=== PATIENT | female | born 1975 | race African-American/Black ===

== ENCOUNTER 2017-10-29 22:19 | Emergency (ER) | payer BC ==
[2017-10-30] MEDS ORDERED: Ketorolac Tromethamine 60 MG/2 ML VIAL ONE (00:25)
--- NOTE | 2017-10-30 07:40 | RAD ---
RIGHT KNEE 4 VIEWS: HISTORY: Right knee pain. FINDINGS: No osseous abnormality. No evidence of degenerative change or fracture. There is evidence of small joint effusion seen in the suprapatellar region. IMPRESSION: Evidence of small joint effusion. No osseous abnormality. POS: [facility]
== END 2017-10-30 00:57 | disposition home or self-care (01) ==
LOC: ERS 22:19
DX: M25.561 Pain in right knee (principal); I10 Essential (primary) hypertension; J45.909 Unspecified asthma, uncomplicated
CPT/HCPCS: 96372; J1885

== ENCOUNTER 2017-11-25 10:22 | Emergency (ER) | payer BC ==
[2017-11-25 11:11] LABS: #Eosinphils 0.4 thou/uL (0.0-0.7); #Lymphocytes 1.3 thou/uL (1.20-3.40); #Monocytes 0.5 thou/uL (0.11-0.59); #Neutrophils 5.1 thou/uL (1.40-6.50); %Basophils 0.2 % (0.0-1.0); %Eosinophils 6.1 % (0.0-10.0); %Lymphocytes 17.5 % (21.0-51.0); %Monocytes 6.4 % (0.0-10.0); %Neutrophils 69.8 % (42.0-75.0); Hemoglobin 14.1 g/dL (12.0-16.0); Mean Corpuscular HGB CONC 33.7 g/dL (32.0-36.0); Mean Corpuscular Hemoglobin 29.4 pg (27.0-31.0); Mean Corpuscular Volume 87.3 fl (81.0-99.0); Mean Platelet Volume 7.4 fL (7.4-10.4); Platelet Count 195 thou/uL (130-400); RBC Distribution Width 12.8 % (11.5-14.5); Red Blood Cell (RBC) Count 4.79 mill/uL (4.20-5.40); White Blood Cell (WBC) Count 7.3 thou/uL (4.8-10.8)
[2017-11-25] MEDS ORDERED: methylPREDNISolone Sod Succ/PF 125 MG/2 ML VIAL ONE (11:11)
[2017-11-25] MEDS ORDERED: diphenhydrAMINE 50 MG/ML VIAL ONE (11:11)
[2017-11-25] MEDS ORDERED: Water For Inject, Bacteriostat 30 ML ONE (11:11)
[2017-11-25] MEDS ORDERED: Ondansetron ODT 4 MG TAB ONE (11:15)
[2017-11-25 11:27] LABS: Anion Gap 11 mmol/L (10-20); BUN (Urea Nitrogen) 8 mg/dL (7.0-18.7); Calc. Creatinine Clearance 0 mL/min (70-130); Calcium 9.4 mg/dL (7.8-10.44); Carbon Dioxide 29 mmol/L (22-29); Chloride 102 mmol/L (98-107); Estimated GFR-MDRD 81; Glucose 91 mg/dL (70-105); Sodium 138 mmol/L (136-145)
[2017-11-25] MEDS ORDERED: Acetaminophen 500 MG TAB ONE (12:11)
== END 2017-11-25 12:17 | disposition home or self-care (01) ==
LOC: ERS 10:22
DX: B34.9 Viral infection, unspecified (principal); R21 Rash and other nonspecific skin eruption; E78.5 Hyperlipidemia, unspecified; I10 Essential (primary) hypertension; J45.909 Unspecified asthma, uncomplicated
CPT/HCPCS: 80048; 85025; 96361; 96374; 96375; J1200; J2930; Q0162

== ENCOUNTER 2017-12-06 20:27 | Inpatient (IN) | payer BC ==
[2017-12-06] MEDS ORDERED: diphenhydrAMINE 50 MG/ML VIAL ONE (20:44)
[2017-12-06] MEDS ORDERED: Acetaminophen 500 MG TAB ONE ×2 (20:44→20:53)
[2017-12-06] MEDS ORDERED: Dexamethasone 4 mg/ml Vial ONE (20:44)
[2017-12-06 21:59] LABS: Fibrinogen 333 mg/dL (253-463)
[2017-12-06 22:00] LABS: INR-International Normal Ratio 1.2; PTT 33.7 SEC (22.9-36.1); Prothrombin Time 15.6 SEC (12.0-14.7)
[2017-12-06 22:08] LABS: ALT (SGPT) 52 U/L (8-55); AST (SGOT) 38 U/L (5-34); Albumin 3.5 g/dL (3.5-5.0); Alkaline Phosphatase 114 U/L (40-150); Anion Gap 16 mmol/L (10-20); BUN (Urea Nitrogen) 11 mg/dL (7.0-18.7); Bilirubin, Total 0.6 mg/dL (0.2-1.2); Calc. Creatinine Clearance 0 mL/min (70-130); Calcium 7.9 mg/dL (7.8-10.44); Carbon Dioxide 22 mmol/L (22-29); Chloride 99 mmol/L (98-107); D-Dimer Test 7.53 *mcg/mL (0.27-0.43); Estimated GFR-MDRD 67; Globulin 2.7 g/dL (2.4-3.5); Glucose 105 mg/dL (70-105); Potassium 3.6 mmol/L (3.5-5.1); Protein, Total 6.2 g/dL (6.0-8.3); Sodium 133 mmol/L (136-145)
[2017-12-06 22:16] LABS: FSP-Qualitative ABNORMAL (Normal)
[2017-12-06 22:20] LABS: FSP-Semiquantitative >=20 & <40 mcg/mL (Less than 5)
[2017-12-06 22:22] LABS: Platelet Count 222 thou/uL (130-400)
[2017-12-06 22:30] LABS: Bilirubin Small (Negative); Blood, Urine Negative (Negative); Clarity CLOUDY (Clear); Glucose, Urine (Dipstick) Negative (Negative); Leukocyte Moderate (Negative); Nitrite Negative (Negative); Protein, Urine (Dipstick) 30 mg/dL (Neg-Trace); Specific Gravity, Urine 1.027 (1.002-1.036); Urobilinogen 0.2 mg/dL (0.2-1.0)
[2017-12-06 22:32] LABS: Band 18 % (5-11); Eosinophils 2 % (0-10); Hemoglobin 13.3 g/dL (12.0-16.0); Lymphocytes 35 % (21-51); MDiff Complete? YES; Mean Corpuscular HGB CONC 34.9 g/dL (32.0-36.0); Mean Corpuscular Hemoglobin 30.1 pg (27.0-31.0); Mean Corpuscular Volume 86.1 fl (81.0-99.0); Mean Platelet Volume 7.3 fL (7.4-10.4); Monocytes 4 % (0-10); Neutrophil 41 % (42-75); PLT Morphology Comment Appears Adequate; Platelet Count 222 thou/uL (130-400); RBC Morphology Normal; Red Blood Cell (RBC) Count 4.43 mill/uL (4.20-5.40); White Blood Cell (WBC) Count 27.3 thou/uL (4.8-10.8)
[2017-12-06 22:33] LABS: Bacteria/HPF Rare-Few HPF (None Seen); Hyaline Casts/LPF 7-10 HYALINE CAST LPF (0-3 Hyaline); Pathc Cast-AUWi Flag 1.01 (0-2.49); Squamous Epithelial 0-3 HPF (0-3); WBC/HPF 21-50 HPF (0-3)
[2017-12-06 22:43] LABS: RBC/HPF 0-3 HPF (0-3)
[2017-12-06 23:23] VITALS: BMI 34.6
[2017-12-06] MEDS ORDERED: diphenhydrAMINE 50 MG/ML VIAL IVP PRN (23:23)
[2017-12-06] MEDS ORDERED: Sodium Chloride 0.9% 1,000 ML IV SCH (23:25)
[2017-12-06] MEDS ORDERED: Ondansetron ODT 4 MG TAB SL PRN (23:25)
[2017-12-06] MEDS ORDERED: Ondansetron HCl/PF 4 MG/2 ML Vial IVP PRN (23:25)
[2017-12-06] MEDS ORDERED: Acetaminophen 325 MG TAB PO PRN (23:25)
[2017-12-07] MEDS ORDERED: Acetaminophen 325 MG TAB PO PRN (00:45)
[2017-12-07] MEDS ORDERED: Sodium Chloride 0.9% 1,000 ML IV SCH (00:45)
[2017-12-07] MEDS ORDERED: Ondansetron ODT 4 MG TAB PO PRN (00:45)
[2017-12-07] MEDS ORDERED: methylPREDNISolone Sod Succ/PF 125 MG/2 ML VIAL IVP SCH (00:45)
[2017-12-07] MEDS ORDERED: Ondansetron HCl/PF 4 MG/2 ML Vial IVP PRN (00:45)
[2017-12-07 01:36] LABS: HIV (1/2) Antibody/Antigen Non-Reactive (NonReactive); HIV 1/2 INDEX 0.26 S/CO (<1.00)
[2017-12-07 01:52] LABS: Lactic Acid 1.5 mmol/L (0.5-2.2)
--- NOTE | 2017-12-07 02:14 | HP ---
DATE OF ADMISSION: 12/06/2017 TIME OF SERVICE: 2350 hours. PRIMARY CARE PHYSICIAN: Laura Cummings M.D. CHIEF COMPLAINT: Rash and fever. HISTORY OF PRESENT ILLNESS: Ms. Greenberg is a 42-year-old -Algerian female with history of obes ity, sleep apnea, asthma, hypertension who presents to the emergency department for complaints of dif fuse rash. The rash began about 3 days ago. She started to have upper torso and bilateral arms and says it extended inferiorly down to her upper thighs. The most recent areas in the upper anterior me dial thigh. She stated it was extremely itchy she has had that before and was told to use just Dove soap which fior has been using, but still had this occurrence. She denied having any fever but was febrile on pres entation. No chills or rigors. No drenching night sweats. No nausea and vomiting, but decreased ap petite has been present. She denies any constipation or GI bleeding. In the emergency department, she was found to be febrile. Vital signs were normal except for heart r ate of 125, white count was 27.3 with 18% bandemia and 41% granulocytosis thus we were called for adm ission. The urinalysis was marginally positive. Lactic acid was 2.4. On arrival to the floor, the patient actually looks very comfortable. She had no other current compl aints. PAST MEDICAL HISTORY: 1. Hypertension, essential. 2. Asthma. 3. Hyperlipidemia, primary cholesterol. 4. Obstructive sleep apnea on CPAP. 5. Obesity. PAST SURGICAL HISTORY: Includes, 1. Hysterectomy in 2013. 2. Laparoscopic cholecystectomy in 2006. HOME MEDICATIONS: 1. Amlodipine 2.5 mg daily. 2. Symbicort 80/4.5 two puffs b.i.d. 3. Home CPAP, she does not know the setting. ALLERGIES: PENICILLIN G causes itching, FENTANYL causes nausea. FAMILY HISTORY: Negative for clotting or bleeding disorder, no immune dysfunction. SOCIAL HISTORY: Negative for habits x3. REVIEW OF SYSTEMS: All systems reviewed and negative except as per HPI. PHYSICAL EXAMINATION: VITAL SIGNS: Temperature on arrival 101.6, pulse 123, blood pressure 114/82, respiratory rate 20 and 98% on room air. On arrival to the floor, temperature was 98.0 with a pulse of 92, blood pressure w as 96/50. GENERAL: She is awake. She is alert. She is oriented x3, well-developed, well-nourished, obese Afr ican-Algerian female appears to be in no acute distress. HEENT: Normocephalic, atraumatic. Pupils equal, round, react to light bilaterally. Mucous membrane s are moist. She has palatal and tonsillar pillar petechiae present. She also has what looks like t hrush or leukoplakia present on a middle two-thirds of the tongue. There are no patches on the tonsi llar pillars. NECK: Supple. No lymphadenopathy, JVD or thyromegaly, no carotid upstroke. There are no bruit. LUNGS: Clear to auscultation bilaterally. No wheezes, rales or rhonchi. CARDIOVASCULAR: Normal S1, S2. No S3 or S4. No audible murmurs. She has had normal PMI. ABDOMEN: Obese, it is nontender, nondistended. She has got bowel sounds in all 4 quadrants. No melina ound, rigidity or guarding. EXTREMITIES: No signs of clubbing. Trace pedal edema. SKIN: Warm, moist, and well perfused. She has diffuse maculopapular rash that extends from her infe rior part of the neck all the way down to her upper thighs and including bilateral arms. It is not v esicular. There is no fluid or blisters, but it is raised and palpable. Does not gia out. It is not tender, but it is itchy. MUSCULOSKELETAL: Normal to inspection. Large joints appeared normal. There are no evidence of effu sions or inflammation. NEUROLOGIC: Cranial nerves II-XII are grossly intact without any focal neurologic deficits. ASSESSMENT AND PLAN: 1. Diffuse maculopapular rash: It could be a viral exanthem versus atopic dermatitis. We will star t on Solu-Medrol tonight, reevaluate in the morning. If she does better, can transport over to [facility] and likely home in the morning. In the meantime, she did receive antibiotics in the ER. We will cover her for urinary tract infection. 2. Sepsis. She is afebrile, tachycardic, elevated white blood cell count with left shift, certainly could be a diffuse bacterial infection is unlikely. Lactic acid was 2.4. Thus, she does qualify fo r severe sepsis. 3. Abnormal urine. Urinalysis showed 21-50 white blood cells and moderate leukocyte esterase. We w ill start her on some ciprofloxacin orally. 4. Hypertension, essential. We will continue her amlodipine once her blood pressure normalized. 5. History of asthma on Symbicort. We will continue. 6. Obstructive sleep apnea. The patient does not know her CPAP settings. Place the patient in observation overnight.
[2017-12-07] MEDS: Diabetic Tussin 200 MG/10 ML UDCUP PO PRN ×2 (02:47→17:18)
[2017-12-07 05:06] LABS: Anion Gap 14 mmol/L (10-20); BUN (Urea Nitrogen) 10 mg/dL (7.0-18.7); Calc. Creatinine Clearance 126 mL/min (70-130); Calcium 7.8 mg/dL (7.8-10.44); Carbon Dioxide 22 mmol/L (22-29); Chloride 108 mmol/L (98-107); Estimated GFR-MDRD 89; Glucose 137 mg/dL (70-105); Potassium 3.8 mmol/L (3.5-5.1); Sodium 140 mmol/L (136-145)
[2017-12-07 05:50] LABS: Band 7 % (5-11); Hemoglobin 12.5 g/dL (12.0-16.0); Lymphocytes 31 % (21-51); MDiff Complete? YES; Mean Corpuscular Hemoglobin 29.5 pg (27.0-31.0); Mean Corpuscular Volume 86.7 fl (81.0-99.0); Mean Platelet Volume 7.8 fL (7.4-10.4); Neutrophil 62 % (42-75); Platelet Count 196 thou/uL (130-400); RBC Distribution Width 13.1 % (11.5-14.5); Red Blood Cell (RBC) Count 4.25 mill/uL (4.20-5.40); White Blood Cell (WBC) Count 16.4 thou/uL (4.8-10.8)
[2017-12-07] MEDS ORDERED: Amlodipine 5 MG TAB PO PRN (08:22)
[2017-12-07] MEDS ORDERED: Vancomycin HCl 1 GM in Premix Bag 1 BAG IVPB SCH ×2 (08:30→10:00)
--- NOTE | 2017-12-07 09:03 | RAD ---
PA AND LATERAL VIEWS CHEST: HISTORY: Cough, sepsis. FINDINGS: Comparison is made with the exam of 07/19/17. The heart size is normal. The aorta is tortuous. The lungs were expanded without focal areas of con solidation, pneumothorax, or pleural effusions. A calcified granuloma is present in the left lung. IMPRESSION: No radiographic evidence of acute cardiopulmonary process. POS: [facility]
[2017-12-07] MEDS: Sodium Chloride 0.9% 1,000 ML IV SCH ×2 (09:32→17:21)
[2017-12-07] MEDS: Famotidine 20 MG TAB PO SCH ×2 (09:32→22:19)
[2017-12-07] MEDS: predniSONE 20 MG TAB PO SCH (09:32)
[2017-12-07] MEDS ORDERED: Vancomycin HCl 1.25 GM in Sodium Chloride 0.9% 250 ML 250 ML IVPB SCH (10:00)
--- NOTE | 2017-12-07 15:33 | ULT ---
BILATERAL RENAL ULTRASOUND: Date: 12/07/17 HISTORY: Sepsis, UTI. FINDINGS: The right kidney measures 10.0 cm in length and the left kidney measures 9.4 cm in length. No focal m ass or hydronephrosis is seen on either side. Cortical echogenicity and thickness is normal. Bladder is grossly unremarkable with a small amount of urine, and a volume of 15 mL. IMPRESSION: Unremarkable exam. POS: [facility]
--- NOTE | 2017-12-07 18:29 | CON ---
DATE OF CONSULTATION: 12/07/2017 REASON FOR CONSULTATION: Skin rash. HISTORY OF PRESENT ILLNESS: A 42-year-old patient who has a history of asthma, rhinitis, LAZ, obesit y and hypertension, who developed pain in the right knee was diagnosed with gout after uric acid was found elevated about 5 weeks ago and primary physician prescribed allopurinol and colchicine, which s he took for 2 weeks and then subsequently developed a papular erythematous eruption. She conferred w ith her PCP, who recommended discontinuation of the gout medicines. The skin eruption persisted and then exacerbated over the past few days and she was admitted for management. She has quite a bit of pruritus. No fever or chills before admission. No headaches, visual symptoms, sore throat, odynopha jazmyne or dysphagia. No cough or sputum production or chest pain. No abdominal pain or diarrhea or gen itourinary symptoms. The right knee pain has improved. PAST MEDICAL HISTORY: Hypertension, asthma, gout, LAZ, hyperlipidemia. PAST SURGICAL HISTORY: Hysterectomy and laparoscopic cholecystectomy. HOME MEDICATIONS: Norvasc, Symbicort. She had been on allopurinol and colchicine, which have been d iscontinued. ALLERGIES: PENICILLIN G with itching. FENTANYL with nausea. FAMILY HISTORY: Noncontributory. 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 Never smoker. Lives by herself in [place]. PHYSICAL EXAMINATION: VITAL SIGNS: T-max 98.0, blood pressure 98/58, pulse 80, respirations 16, O2 sat 98%. SKIN: Diffuse confluent maculopapular rash spread through the chest front and back, abdomen and appe ndicular structures, particularly in the proximal skin appendicular structures. No palmar involvemen t noted. No lymphadenopathy. HEENT: Ocular movements conjugate. Sclerae white. Conjunctivae are preserved. Cornea normal. Daron al passages patent. Oral cavity, I did not see any obvious eruption. NECK: Supple. No jugular venous distention. LUNGS: With symmetric clear breath sounds. HEART: S1, S2, regular rate. No S3, S4. ABDOMEN: Soft, not distended or tender. EXTREMITIES: No joint inflammatory activity. Pulses 1+ in dorsalis pedis. Moves all extremities eq ually. LABORATORY DATA: White cell count 27 and now 16, hemoglobin 12, MCV normal, platelets 196,000, 41% n eutrophils, 18% bands, 2% eosinophils. Chemistry was normal except for sodium 133, AST mildly elevat ed at 38. Urinalysis 21-50 wbc's, 30 protein. HIV nonreactive. Chest x-ray with no findings of sig nificance. ASSESSMENT: History of hypertension, obesity, obstructive sleep apnea and asthma with the recent pre sumptive diagnosis of gout, given 2 weeks of allopurinol and colchicine and then subsequently develop ed papular erythematous eruption, which has persisted over the past 3 weeks. DISCUSSION: The natural history of DRESS syndrome or erythema multiforme associated with drug admini stration can be protracted up to or more than 6 weeks with waxing and waning of the skin eruption. T he most likely scenario is still overwhelmingly the reaction to allopurinol. Continue managing sympt omatically. May try corticosteroids for a brief period of time and discontinue antimicrobial therapy .
[2017-12-07] MEDS: Mometasone/Formoterol 120 PUFF INHALER INH SCH (19:18)
--- NOTE | 2017-12-07 20:14 | PDOC.PN ---
- Subjective Encounter Start Date: 12/07/17 Encounter Start Time: 08:30 Patient seen and examined for Sepsis. Feels slightly better. Gen rash still present. No fever/chills. No new complaints. No overnight events - Objective Resuscitation Status: Resuscitation Status FULL:Full Resuscitation MAR Reviewed: Yes Vital Signs & Weight: Vital Signs (12 hours) Temp Pulse Resp BP Pulse Ox 12/07/17 19:18 82 12 99 12/07/17 17:16 98.4 F 85 20 111/58 L 12/07/17 10:42 97.8 F 80 16 98 Weight Weight 201 lb 14.4 oz I&O: 12/06/17 12/07/17 12/08/17 06:59 06:59 06:59 Intake Total 661 Output Total 1650 250 Balance -989 -250 Result Diagrams: 12/07/17 04:01 12/07/17 04:01 Radiology Reviewed by me: Yes (CXR - Negative) Phys Exam - Physical Examination Constitutional: NAD Respiratory: no wheezing, no rales, no rhonchi, clear to auscultation bilateral Cardiovascular: RRR, no significant murmur, no rub no heaves/pulsations Gastrointestinal: soft, non-tender, no distention, positive bowel sounds Musculoskeletal: no edema, pulses present Neurological: non-focal, normal sensation, moves all 4 limbs Psychiatric: normal affect, A&O x 3 Skin: normal turgor Deviation from normal: Gen maculopapular rash Dx/Plan (1) Sepsis with acute organ dysfunction Code(s): A41.9 - SEPSIS, UNSPECIFIED ORGANISM; R65.20 - SEVERE SEPSIS WITHOUT SEPTIC SHOCK Status: Acute Comment: with Lactic acidosis (2) UTI (urinary tract infection) Status: Acute (3) Obesity (BMI 30.0-34.9) Code(s): E66.9 - OBESITY, UNSPECIFIED Status: Chronic (4) Hypertension Code(s): I10 - ESSENTIAL (PRIMARY) HYPERTENSION Status: Chronic (5) Mild intermittent asthma Code(s): J45.20 - MILD INTERMITTENT ASTHMA, UNCOMPLICATED Status: Chronic - Plan continue antibiotics, DVT proph w/SCDs Renal Ultrasound to r/o Obstructive uropathy -: AM labs -: Consult ID -: Resume home meds, PRN Nebs -: Cont to monitor, Change to inpatient, Await cultures Review of Systems - Review of Systems Respiratory: Cough. negative: Dry, Shortness of Breath, Hemoptysis, SOB with Excertion, Pleuritic Pain, Sputum, Wheezing Cardiovascular: negative: chest pain, palpitations, orthopnea, paroxysmal nocturnal dyspnea, edema, light headedness, other Gastrointestinal: negative: Nausea, Vomiting, Abdominal Pain, Diarrhea, Constipation, Melena, Hematochezia, Other - Medications/Allergies Allergies/Adverse Reactions: Allergies Allergy/AdvReac Type Severity Reaction Status Date / Time fentanyl Allergy Verified 12/07/17 10:54 Penicillins Allergy Verified 12/06/17 23:31 tramadol Allergy Verified 12/06/17 23:31 Medications: Current Medications Acetaminophen (Tylenol) 650 mg PO Q4H PRN PRN Reason: Headache/Fever or Pain Hydrocodone Bitart/Acetaminophen ([place] 5/325) 1 tab PO Q4H PRN PRN Reason: Moderate Pain (4-6) Albuterol/Ipratropium (Duoneb) 3 ml NEB [id number] PRN PRN Reason: SOB &/or Wheezing Amlodipine Besylate (Norvasc) 5 mg PO DAILY PRN PRN Reason: SBP Greater Than 170 Famotidine (Pepcid) 20 mg PO BID [facility] Last Admin: 12/07/17 09:32 Dose: 20 mg Guaifenesin (Robitussin Sf) 200 mg PO Q4H PRN PRN Reason: Cough Last Admin: 12/07/17 17:18 Dose: 200 mg Sodium Chloride (Normal Saline 0.9%) 1,000 mls @ 125 mls/hr IV .Q8H [facility] Last Admin: 12/07/17 17:21 Dose: Not Given Miscellaneous Medication (Pharmacy To Dose) 1 each IVPB PRN PRN PRN Reason: Pharmacy to dose Mometasone Furoate/Formoterol Fumar (Dulera 200 Mcg/5 Mcg Inhaler) 2 puff INH BID-RT [facility] Last Admin: 12/07/17 19:18 Dose: 2 puff Ondansetron HCl (Zofran Odt) 4 mg PO Q6H PRN PRN Reason: Nausea/Vomiting Ondansetron HCl (Zofran) 4 mg IVP Q6H PRN PRN Reason: Nausea/Vomiting Prednisone (Prednisone) 40 mg PO QAM-[facility] Last Admin: 12/07/17 09:32 Dose: 40 mg Sodium Chloride (Flush - Normal Saline) 10 ml IVF PRN PRN PRN Reason: Saline Flush Last Admin: 12/07/17 00:58 Dose: 10 ml
[2017-12-07] MEDS: diphenhydrAMINE 25 MG CAP PO PRN (22:19)
[2017-12-08] MEDS: HYDROcodone/Acetaminophen 5/325 mg Tablet PO PRN ×2 (00:21→22:10)
[2017-12-08] MEDS: Sodium Chloride 0.9% 1,000 ML IV SCH ×3 (02:27→16:20)
[2017-12-08 05:49] LABS: ALT (SGPT) 38 U/L (8-55); AST (SGOT) 25 U/L (5-34); Albumin 3.4 g/dL (3.5-5.0); Alkaline Phosphatase 93 U/L (40-150); Anion Gap 14 mmol/L (10-20); BUN (Urea Nitrogen) 12 mg/dL (7.0-18.7); Bilirubin, Total 0.3 mg/dL (0.2-1.2); CRP (Inflammatory) 1.71 mg/dL (= or < 0.5); Calc. Creatinine Clearance 149 mL/min (70-130); Calcium 7.8 mg/dL (7.8-10.44); Carbon Dioxide 22 mmol/L (22-29); Chloride 109 mmol/L (98-107); Estimated GFR-MDRD Greater than 90; Globulin 2.3 g/dL (2.4-3.5); Glucose 114 mg/dL (70-105); Potassium 3.5 mmol/L (3.5-5.1); Protein, Total 5.7 g/dL (6.0-8.3); Sodium 141 mmol/L (136-145)
[2017-12-08 06:34] LABS: Hemoglobin 10.8 g/dL (12.0-16.0); Mean Corpuscular HGB CONC 33.7 g/dL (32.0-36.0); Mean Corpuscular Hemoglobin 29.4 pg (27.0-31.0); Mean Corpuscular Volume 87.2 fl (81.0-99.0); Mean Platelet Volume 7.7 fL (7.4-10.4); Platelet Count 203 thou/uL (130-400); RBC Distribution Width 13.4 % (11.5-14.5); Red Blood Cell (RBC) Count 3.66 mill/uL (4.20-5.40); White Blood Cell (WBC) Count 27.4 thou/uL (4.8-10.8)
[2017-12-08] MEDS: Mometasone/Formoterol 120 PUFF INHALER INH SCH ×2 (07:25→19:27)
[2017-12-08 07:32] LABS: Band 23 % (5-11); Eosinophils 3 % (0-10); Lymphocytes 26 % (21-51); MDiff Complete? YES; Monocytes 6 % (0-10); Neutrophil 41 % (42-75); RBC Morphology Normal; Reactive Lymphocytes 1 % (0-10)
[2017-12-08] MEDS: Famotidine 20 MG TAB PO SCH ×2 (08:34→21:04)
[2017-12-08] MEDS: Loratadine 10 MG TAB PO SCH (08:34)
[2017-12-08] MEDS: predniSONE 20 MG TAB PO SCH (08:35)
[2017-12-08] MEDS: Diabetic Tussin 200 MG/10 ML UDCUP PO PRN (09:47)
--- NOTE | 2017-12-08 19:06 | PDOC.PN ---
- Subjective Encounter Start Date: 12/08/17 Encounter Start Time: 10:00 Patient seen and examined for Sepsis. Gen rash slightly better. No cough/SOB/ dysuria/diarrhea. No new complaints. No overnight events - Objective Resuscitation Status: Resuscitation Status FULL:Full Resuscitation MAR Reviewed: Yes Vital Signs & Weight: Vital Signs (12 hours) Temp Pulse Resp BP Pulse Ox 12/08/17 17:33 99.0 F 80 20 130/71 12/08/17 11:20 98.1 F 86 20 112/69 95 12/08/17 07:53 97.6 F 77 20 101/57 L 12/08/17 07:25 98.9 F 89 12 98 Weight Weight 201 lb 14.4 oz I&O: 12/07/17 12/08/17 12/09/17 06:59 06:59 06:59 Intake Total 661 Output Total 1650 250 Balance -989 -250 Result Diagrams: 12/08/17 04:55 12/08/17 04:55 Additional Labs: Microbiology 12/07/17 10:15 Nasopharyngeal swab Respiratory Virus Panel (PCR) ([facility]) - Final 12/06/17 22:00 Urine clean catch Urine Culture - Final 12/06/17 21:37 Venous blood - Right Hand Blood Culture - Preliminary NO GROWTH AT 48 HOURS 12/06/17 21:29 Venous blood - Left Arm Blood Culture - Preliminary NO GROWTH AT 48 HOURS Radiology Reviewed by me: Yes (CXR - Neg) Phys Exam - Physical Examination Constitutional: NAD Respiratory: no wheezing, no rhonchi Cardiovascular: RRR, no rub Gastrointestinal: soft, non-tender, no distention, positive bowel sounds Musculoskeletal: no edema Neurological: moves all 4 limbs Skin: normal turgor Deviation from normal: Gen rash - improving Dx/Plan (1) Sepsis with acute organ dysfunction Code(s): A41.9 - SEPSIS, UNSPECIFIED ORGANISM; R65.20 - SEVERE SEPSIS WITHOUT SEPTIC SHOCK Status: Acute Comment: with Lactic acidosis (2) UTI (urinary tract infection) Status: Acute Comment: contaminated sample. (3) Generalized rash Code(s): R21 - RASH AND OTHER NONSPECIFIC SKIN ERUPTION Status: Acute (4) Obesity (BMI 30.0-34.9) Code(s): E66.9 - OBESITY, UNSPECIFIED Status: Chronic (5) Hypertension Code(s): I10 - ESSENTIAL (PRIMARY) HYPERTENSION Status: Chronic (6) Mild intermittent asthma Code(s): J45.20 - MILD INTERMITTENT ASTHMA, UNCOMPLICATED Status: Chronic - Plan out of bed/ambulate, DVT proph w/SCDs Resubmit urine culture due to contaminated sample -: Atbx dced per ID -: AM labs -: Cont to monitor -: Cont Steroids, Change IVF to 75 ml/hr Review of Systems - Review of Systems Cardiovascular: negative: chest pain, palpitations, orthopnea, paroxysmal nocturnal dyspnea, edema, light headedness, other Gastrointestinal: negative: Nausea, Vomiting, Abdominal Pain, Diarrhea, Constipation, Melena, Hematochezia, Other - Medications/Allergies Allergies/Adverse Reactions: Allergies Allergy/AdvReac Type Severity Reaction Status Date / Time fentanyl Allergy Verified 12/07/17 10:54 Penicillins Allergy Verified 12/06/17 23:31 tramadol Allergy Verified 12/06/17 23:31 Medications: Current Medications Acetaminophen (Tylenol) 650 mg PO Q4H PRN PRN Reason: Headache/Fever or Pain Hydrocodone Bitart/Acetaminophen ([place] 5/325) 1 tab PO Q4H PRN PRN Reason: Moderate Pain (4-6) Last Admin: 12/08/17 00:21 Dose: 1 tab Albuterol/Ipratropium (Duoneb) 3 ml NEB [id number] PRN PRN Reason: SOB &/or Wheezing Amlodipine Besylate (Norvasc) 5 mg PO DAILY PRN PRN Reason: SBP Greater Than 170 Diphenhydramine HCl (Benadryl) 25 mg PO Q6H PRN PRN Reason: Itching Last Admin: 12/07/17 22:19 Dose: 25 mg Famotidine (Pepcid) 20 mg PO BID [facility] Last Admin: 12/08/17 08:34 Dose: 20 mg Guaifenesin (Robitussin Sf) 200 mg PO Q4H PRN PRN Reason: Cough Last Admin: 12/08/17 09:47 Dose: 200 mg Sodium Chloride (Normal Saline 0.9%) 1,000 mls @ 125 mls/hr IV .Q8H [facility] Last Admin: 12/08/17 16:20 Dose: Not Given Loratadine (Claritin) 10 mg PO DAILY [facility] Last Admin: 12/08/17 08:34 Dose: 10 mg Mometasone Furoate/Formoterol Fumar (Dulera 200 Mcg/5 Mcg Inhaler) 2 puff INH BID-RT [facility] Last Admin: 12/08/17 07:25 Dose: 2 puff Ondansetron HCl (Zofran Odt) 4 mg PO Q6H PRN PRN Reason: Nausea/Vomiting Ondansetron HCl (Zofran) 4 mg IVP Q6H PRN PRN Reason: Nausea/Vomiting Prednisone (Prednisone) 40 mg PO QAM-[facility] Last Admin: 12/08/17 08:35 Dose: 40 mg Sodium Chloride (Flush - Normal Saline) 10 ml IVF PRN PRN PRN Reason: Saline Flush Last Admin: 12/07/17 00:58 Dose: 10 ml
[2017-12-08] MEDS: diphenhydrAMINE 25 MG CAP PO PRN (21:04)
[2017-12-09] MEDS: Sodium Chloride 0.9% 1,000 ML IV SCH ×2 (03:45→08:09)
[2017-12-09 05:16] LABS: Anion Gap 12 mmol/L (10-20); BUN (Urea Nitrogen) 9 mg/dL (7.0-18.7); Calc. Creatinine Clearance 153 mL/min (70-130); Calcium 8.1 mg/dL (7.8-10.44); Carbon Dioxide 25 mmol/L (22-29); Chloride 107 mmol/L (98-107); Estimated GFR-MDRD Greater than 90; Glucose 74 mg/dL (70-105); Sodium 141 mmol/L (136-145)
[2017-12-09 05:19] LABS: Potassium 2.9 mmol/L (3.5-5.1)
[2017-12-09] MEDS ORDERED: Potassium Chloride 20 MEQ TAB PO SCH (05:45)
[2017-12-09 05:56] LABS: Band 5 % (5-11); Eosinophils 7 % (0-10); Hemoglobin 11.2 g/dL (12.0-16.0); Lymphocytes 27 % (21-51); MDiff Complete? YES; Mean Corpuscular HGB CONC 33.2 g/dL (32.0-36.0); Mean Corpuscular Hemoglobin 29.5 pg (27.0-31.0); Mean Corpuscular Volume 88.8 fl (81.0-99.0); Mean Platelet Volume 7.6 fL (7.4-10.4); Monocytes 5 % (0-10); Neutrophil 56 % (42-75); Platelet Count 225 thou/uL (130-400); RBC Distribution Width 13.5 % (11.5-14.5); Red Blood Cell (RBC) Count 3.79 mill/uL (4.20-5.40); White Blood Cell (WBC) Count 23.2 thou/uL (4.8-10.8)
[2017-12-09 06:18] LABS: Potassium 3.1 mmol/L (3.5-5.1)
[2017-12-09] MEDS: Mometasone/Formoterol 120 PUFF INHALER INH SCH ×2 (07:28→19:11)
[2017-12-09] MEDS: predniSONE 20 MG TAB PO SCH (08:07)
[2017-12-09] MEDS: Famotidine 20 MG TAB PO SCH ×3 (09:01→21:56)
[2017-12-09] MEDS: Loratadine 10 MG TAB PO SCH ×2 (09:01→18:07)
[2017-12-09] MEDS: Diabetic Tussin 200 MG/10 ML UDCUP PO PRN ×2 (14:39→21:55)
[2017-12-09] MEDS ORDERED: Fluconazole 100 MG TAB PO SCH (18:00)
[2017-12-10] MEDS: Sodium Chloride 0.9% 1,000 ML IV SCH (05:53)
[2017-12-10] MEDS: Mometasone/Formoterol 120 PUFF INHALER INH SCH ×2 (06:56→19:01)
[2017-12-10] MEDS: Famotidine 20 MG TAB PO SCH ×2 (09:29→21:47)
[2017-12-10] MEDS: predniSONE 20 MG TAB PO SCH (09:29)
[2017-12-10] MEDS: Loratadine 10 MG TAB PO SCH ×2 (09:38→21:49)
--- NOTE | 2017-12-10 10:19 | PDOC.PN ---
- Subjective Encounter Start Date: 12/09/17 Encounter Start Time: 15:00 Patient Seen todAY, STILL HAVE EXTENSIVE RASH WITH ITCGHINBG, DASH FROM aLLOPURINOL. - Objective Resuscitation Status: Resuscitation Status FULL:Full Resuscitation MAR Reviewed: Yes Vital Signs & Weight: Vital Signs (12 hours) Temp Pulse Resp BP Pulse Ox 12/10/17 08:17 98.3 F 67 16 117/63 97 Weight Weight 201 lb 14.4 oz I&O: 12/09/17 12/10/17 12/11/17 06:59 06:59 06:59 Intake Total 1660 Balance 1660 Result Diagrams: 12/09/17 04:51 12/09/17 05:55 Radiology Reviewed by me: Yes Phys Exam - Physical Examination HEENT: PERRLA, moist MMs Neck: no nodes, no JVD Respiratory: no wheezing, no rales Cardiovascular: no significant murmur Gastrointestinal: soft, non-tender Musculoskeletal: no edema, pulses present Dx/Plan (1) Generalized rash Code(s): R21 - RASH AND OTHER NONSPECIFIC SKIN ERUPTION Status: Acute Comment: Pt is on po Steroids, Perssitant itching needing Claritin at bedtime. Will do Calamine lotion for better reflief. (2) Sepsis with acute organ dysfunction Code(s): A41.9 - SEPSIS, UNSPECIFIED ORGANISM; R65.20 - SEVERE SEPSIS WITHOUT SEPTIC SHOCK Status: Acute Comment: with Lactic acidosis, no skin breakdonw , has possible yeast, with vaginal dischagre. (3) UTI (urinary tract infection) Status: Acute Comment: contaminated sample. Likely vaginitis with yeast, will do Fluconazole 100mg now. (4) Mild intermittent asthma Code(s): J45.20 - MILD INTERMITTENT ASTHMA, UNCOMPLICATED Status: Chronic (5) Hypertension Code(s): I10 - ESSENTIAL (PRIMARY) HYPERTENSION Status: Chronic Comment: stbale, at goal likely will increase with steroids. - Plan cont current plan of care, brunson catheter, PT/OT, nursing home social worker, respiratory therapy, DVT proph w/SCDs * . Review of Systems - Review of Systems Constitutional: negative: fever, chills, sweats, weakness, malaise, other Eyes: negative: Pain, Vision Change, Conjunctivae Inflammation, Eyelid Inflammation, Redness, Other ENT: negative: Ear Pain, Ear Discharge, Nose Pain, Nose Discharge, Nose Congestion, Mouth Pain, Mouth Swelling, Throat Pain, Throat Swelling, Other Cardiovascular: negative: chest pain, palpitations, orthopnea, paroxysmal nocturnal dyspnea, edema, light headedness, other Gastrointestinal: negative: Nausea, Vomiting, Abdominal Pain, Diarrhea, Constipation, Melena, Hematochezia, Other Musculoskeletal: negative: Neck Pain, Shoulder Pain, Arm Pain, Back Pain, Hand Pain, Leg Pain, Foot Pain, Other - Medications/Allergies Allergies/Adverse Reactions: Allergies Allergy/AdvReac Type Severity Reaction Status Date / Time fentanyl Allergy Verified 12/07/17 10:54 Penicillins Allergy Verified 12/06/17 23:31 tramadol Allergy Verified 12/06/17 23:31 Medications: Current Medications Acetaminophen (Tylenol) 650 mg PO Q4H PRN PRN Reason: Headache/Fever or Pain Hydrocodone Bitart/Acetaminophen ([place] 5/325) 1 tab PO Q4H PRN PRN Reason: Moderate Pain (4-6) Last Admin: 12/08/17 22:10 Dose: 1 tab Albuterol/Ipratropium (Duoneb) 3 ml NEB [id number] PRN PRN Reason: SOB &/or Wheezing Amlodipine Besylate (Norvasc) 5 mg PO DAILY PRN PRN Reason: SBP Greater Than 170 Diphenhydramine HCl (Benadryl) 25 mg PO Q6H PRN PRN Reason: Itching Last Admin: 12/08/17 21:04 Dose: 25 mg Famotidine (Pepcid) 20 mg PO BID [facility] Last Admin: 12/10/17 09:29 Dose: 20 mg Guaifenesin (Robitussin Sf) 200 mg PO Q4H PRN PRN Reason: Cough Last Admin: 12/09/17 21:55 Dose: 200 mg Sodium Chloride (Normal Saline 0.9%) 1,000 mls @ 75 mls/hr IV .[id number] [facility] Last Admin: 12/10/17 05:53 Dose: 1,000 mls Loratadine (Claritin) 5 mg PO BID [facility] Last Admin: 12/10/17 09:38 Dose: 5 mg Mometasone Furoate/Formoterol Fumar (Dulera 200 Mcg/5 Mcg Inhaler) 2 puff INH BID-RT [facility] Last Admin: 12/10/17 06:56 Dose: 2 puff Ondansetron HCl (Zofran Odt) 4 mg PO Q6H PRN PRN Reason: Nausea/Vomiting Ondansetron HCl (Zofran) 4 mg IVP Q6H PRN PRN Reason: Nausea/Vomiting Prednisone (Prednisone) 40 mg PO QAM-[facility] Last Admin: 12/10/17 09:29 Dose: 40 mg Sodium Chloride (Flush - Normal Saline) 10 ml IVF PRN PRN PRN Reason: Saline Flush Last Admin: 12/07/17 00:58 Dose: 10 ml
[2017-12-10] MEDS: Diabetic Tussin 200 MG/10 ML UDCUP PO PRN (10:43)
--- NOTE | 2017-12-10 14:09 | PDOC.PN ---
- Subjective Encounter Start Date: 12/10/17 Encounter Start Time: 11:00 Patient Seen today, persistant itching unablle to sleep, Reassured pt, itching will last for few weeks, Plan to discharge home in Am. - Objective Resuscitation Status: Resuscitation Status FULL:Full Resuscitation MAR Reviewed: Yes Vital Signs & Weight: Vital Signs (12 hours) Temp Pulse Resp BP Pulse Ox 12/10/17 12:50 98.7 F 91 20 122/69 12/10/17 08:17 98.3 F 67 16 117/63 97 12/10/17 08:00 98.3 F 67 16 Weight Weight 201 lb 14.4 oz I&O: 12/09/17 12/10/17 12/11/17 06:59 06:59 06:59 Intake Total 1660 Balance 1660 Result Diagrams: 12/09/17 04:51 12/09/17 05:55 Radiology Reviewed by me: Yes Phys Exam - Physical Examination HEENT: PERRLA, moist MMs Neck: no nodes, no JVD Respiratory: no wheezing, no rales Cardiovascular: RRR, no significant murmur Gastrointestinal: soft, non-tender Musculoskeletal: no edema, pulses present Dx/Plan (1) Generalized rash Code(s): R21 - RASH AND OTHER NONSPECIFIC SKIN ERUPTION Status: Acute Comment: Pt is on po Steroids, Perssitant itching needing Claritin at bedtime. Will do Calamine lotion for better reflief and Hydroxyzine for itching (2) Sepsis with acute organ dysfunction Code(s): A41.9 - SEPSIS, UNSPECIFIED ORGANISM; R65.20 - SEVERE SEPSIS WITHOUT SEPTIC SHOCK Status: Acute Comment: with Lactic acidosis, no skin breakdonw , has possible yeast, with vaginal dischagre. (3) UTI (urinary tract infection) Status: Acute Comment: contaminated sample. Likely vaginitis with yeast, will do Fluconazole 100mg now. (4) Mild intermittent asthma Code(s): J45.20 - MILD INTERMITTENT ASTHMA, UNCOMPLICATED Status: Chronic (5) Hypertension Code(s): I10 - ESSENTIAL (PRIMARY) HYPERTENSION Status: Chronic Comment: stbale, at goal likely will increase with steroids. - Plan cont current plan of care, continue antibiotics, PT/OT, incentive spirometry, DVT proph w/SCDs * . Review of Systems - Review of Systems Eyes: negative: Pain, Vision Change, Conjunctivae Inflammation, Eyelid Inflammation, Redness, Other ENT: negative: Ear Pain, Ear Discharge, Nose Pain, Nose Discharge, Nose Congestion, Mouth Pain, Mouth Swelling, Throat Pain, Throat Swelling, Other Respiratory: negative: Cough, Dry, Shortness of Breath, Hemoptysis, SOB with Excertion, Pleuritic Pain, Sputum, Wheezing Cardiovascular: negative: chest pain, palpitations, orthopnea, paroxysmal nocturnal dyspnea, edema, light headedness, other Gastrointestinal: negative: Nausea, Vomiting, Abdominal Pain, Diarrhea, Constipation, Melena, Hematochezia, Other Genitourinary: negative: Dysuria, Frequency, Incontinence, Hematuria, Retention , Other Skin: Rash, Bruising - Medications/Allergies Allergies/Adverse Reactions: Allergies Allergy/AdvReac Type Severity Reaction Status Date / Time fentanyl Allergy Verified 12/07/17 10:54 Penicillins Allergy Verified 12/06/17 23:31 tramadol Allergy Verified 12/06/17 23:31 Medications: Current Medications Acetaminophen (Tylenol) 650 mg PO Q4H PRN PRN Reason: Headache/Fever or Pain Hydrocodone Bitart/Acetaminophen ([place] 5/325) 1 tab PO Q4H PRN PRN Reason: Moderate Pain (4-6) Last Admin: 12/08/17 22:10 Dose: 1 tab Albuterol/Ipratropium (Duoneb) 3 ml NEB [id number] PRN PRN Reason: SOB &/or Wheezing Amlodipine Besylate (Norvasc) 5 mg PO DAILY PRN PRN Reason: SBP Greater Than 170 Calamine/Zinc Oxide (Calamine Lotion) 1 ml TP BID [facility] Diphenhydramine HCl (Benadryl) 25 mg PO Q6H PRN PRN Reason: Itching Last Admin: 12/08/17 21:04 Dose: 25 mg Famotidine (Pepcid) 20 mg PO BID [facility] Last Admin: 12/10/17 09:29 Dose: 20 mg Guaifenesin (Robitussin Sf) 200 mg PO Q4H PRN PRN Reason: Cough Last Admin: 12/10/17 10:43 Dose: 200 mg Hydroxyzine HCl (Atarax) 25 mg PO Q6H PRN PRN Reason: Itching Sodium Chloride (Normal Saline 0.9%) 1,000 mls @ 75 mls/hr IV .[id number] [facility] Last Admin: 12/10/17 05:53 Dose: 1,000 mls Loratadine (Claritin) 5 mg PO BID [facility] Last Admin: 12/10/17 09:38 Dose: 5 mg Mometasone Furoate/Formoterol Fumar (Dulera 200 Mcg/5 Mcg Inhaler) 2 puff INH BID-RT [facility] Last Admin: 12/10/17 06:56 Dose: 2 puff Ondansetron HCl (Zofran Odt) 4 mg PO Q6H PRN PRN Reason: Nausea/Vomiting Ondansetron HCl (Zofran) 4 mg IVP Q6H PRN PRN Reason: Nausea/Vomiting Prednisone (Prednisone) 40 mg PO QAM-WM [facility] Last Admin: 12/10/17 09:29 Dose: 40 mg Sodium Chloride (Flush - Normal Saline) 10 ml IVF PRN PRN PRN Reason: Saline Flush Last Admin: 12/07/17 00:58 Dose: 10 ml
[2017-12-10] MEDS: Calamine/Zinc Oxide 177 ML LOTION TP SCH (15:23)
[2017-12-10] MEDS: hydrOXYzine 25 MG TAB PO PRN ×2 (15:23→21:49)
[2017-12-11] MEDS: Sodium Chloride 0.9% 1,000 ML IV SCH ×2 (04:04→04:09)
[2017-12-11] MEDS: Mometasone/Formoterol 120 PUFF INHALER INH SCH (08:11)
[2017-12-11] MEDS ORDERED: Potassium Chloride 20 MEQ TAB PO SCH (08:15)
[2017-12-11 08:39] VITALS: BP 109/56
[2017-12-11 08:52] LABS: Hemoglobin 12.1 g/dL (12.0-16.0); Mean Corpuscular HGB CONC 33.4 g/dL (32.0-36.0); Mean Corpuscular Hemoglobin 29.3 pg (27.0-31.0); Mean Corpuscular Volume 87.9 fl (81.0-99.0); Platelet Count 270 thou/uL (130-400); RBC Distribution Width 13.6 % (11.5-14.5); Red Blood Cell (RBC) Count 4.13 mill/uL (4.20-5.40); White Blood Cell (WBC) Count 22.1 thou/uL (4.8-10.8)
[2017-12-11 08:55] LABS: Anion Gap 11 mmol/L (10-20); BUN (Urea Nitrogen) 12 mg/dL (7.0-18.7); Calc. Creatinine Clearance 160 mL/min (70-130); Calcium 8.8 mg/dL (7.8-10.44); Carbon Dioxide 31 mmol/L (22-29); Chloride 103 mmol/L (98-107); Estimated GFR-MDRD Greater than 90; Glucose 81 mg/dL (70-105); Potassium 3.3 mmol/L (3.5-5.1); Sodium 142 mmol/L (136-145)
[2017-12-11 09:03] VITALS: TEMP 98.7
[2017-12-11] MEDS: Famotidine 20 MG TAB PO SCH (09:22)
[2017-12-11] MEDS: hydrOXYzine 25 MG TAB PO PRN (09:23)
[2017-12-11] MEDS: Loratadine 10 MG TAB PO SCH (09:23)
[2017-12-11] MEDS: predniSONE 20 MG TAB PO SCH (09:23)
[2017-12-11] MEDS: Calamine/Zinc Oxide 177 ML LOTION TP SCH (10:11)
--- NOTE | 2017-12-11 16:42 | DIS ---
DATE OF ADMISSION: 12/07/2017 DATE OF DISCHARGE: 12/11/2017 DISCHARGE DIAGNOSES: Generalized rash, sepsis with acute organ dysfunction, urinary tract infection, mild intermittent asthma, hypertension. HISTORY OF PRESENT ILLNESS/HOSPITAL COURSE: Ms. Bethany Greenberg is a 42-year-old female with a histor y of obesity, sleep apnea, asthma, and hypertension, who presented to the emergency room with complai nts of diffuse rash of 3 days' duration, which started from upper torso around the bilateral arms and then extending to her upper thighs as well as the upper anterior medial thigh. She has got wi th itching. She had been diagnosed with right knee gout after uric acid was found to be elevated abo ut 5 weeks ago. Primary care physician started her on allopurinol and colchicine, which she took for about 2 weeks, after which she developed this papular erythematous eruption. she consulted h er PCP, he recommended discontinuation of the medications, but the eruption persisted and then was ex acerbated over the past few days, which resulted in her being admitted to the hospital. On examinati on, she was found to have diffuse confluent maculopapular rash spreading through the chest front and back, abdomen and appendicular structures, particularly in the proximal skin appendicular structure. There was no palmar involvement and no lymphadenopathy. Physical examination was, otherwise, unrema rkable. Assessment of DRESS syndrome or erythema multiforme associated with drug administration was made and she was placed on steroids and symptomatic management. She was initially started on antimicrobial ma nagement on initial admission, but this was subsequently discontinued. At the time of discharge, the rash was almost completely resolved and patient was deemed stable to be discharged home. She had no complaints and will follow up with her primary care physician for further care. DISCHARGE MEDICATIONS: Calamine lotion apply topically twice a day, Benadryl 25 mg every 6 hours as needed for itching, hydroxyzine every 6 hours as needed for itching, potassium chloride 20 mEq daily, prednisone 40 mg every morning with breakfast, Symbicort 2 puffs inhaled twice a day, amlodipine 5 m g daily, fexofenadine hydrochloride 120 mg daily. PHYSICAL EXAMINATION: She was examined on the day of discharge. VITAL SIGNS: Blood pressure 109/53, oxygen saturation 97% on room air, respiratory rate 20, pulse 59 , temperature 98.4 degrees Fahrenheit. GENERAL: Not in acute distress. She is sitting up comfortably in bed, eating breakfast. HEENT: Normocephalic, atraumatic. Not pale, anicteric. Moist mucous membranes. NECK: Supple, full range of movement. CARDIOVASCULAR: S1 and S2 positive, regular rate and rhythm. No murmurs, rubs, or gallops. RESPIRATORY: Vesicular breath sounds bilaterally. No wheezes, rales, or rhonchi. SKIN: Warm and dry, well-perfused. No lesions appreciated. ABDOMEN: Soft, nontender, nondistended. Bowel sounds normoactive. NEUROLOGIC: Alert and oriented to time, place, and person. No focal deficits. PSYCHIATRIC: Normal mood and affect. LABORATORY DATA: WBC count 22.1, hemoglobin 12.1, platelet count 270. Sodium 142, potassium 3.3, ch loride 103, carbon dioxide 31, BUN 12, creatinine 0.67, glucose 81. Lactic acid 8.8. IMAGING: Renal ultrasound was unremarkable. Chest x-ray showed no evidence of active cardiopulmonar y process. CONSULTATIONS: Infectious Disease. PROCEDURES: None. CONDITION AT DISCHARGE: Stable and improved. CARE GOAL: To follow up with primary care physician within 2 weeks of discharge. Encouraged her to take medications as prescribed. She is to return to the emergency room if she has a recurrence of he r rash. ACTIVITY: Resume as tolerated. DIET: Low sodium. Discharge time 65 minutes including chart review and documentation.
== END 2017-12-11 14:23 | disposition home or self-care (01) | DRG 872 ==
LOC: ERS 20:27 → 2SW 22:25 → OBSVTOIN 22:25 → 3SE 12-07 10:43
PROVIDERS: ADMIT Internal Medicine Infectious Disease; ATTEND Internal Medicine Infectious Disease
DX: A41.9 Sepsis, unspecified organism (principal); E87.2 Acidosis; N39.0 Urinary tract infection, site not specified; R65.20 Severe sepsis without septic shock; R21 Rash and other nonspecific skin eruption; B37.3 Candidiasis of vulva and vagina; J45.20 Mild intermittent asthma, uncomplicated; I10 Essential (primary) hypertension; E66.9 Obesity, unspecified; Z68.34 Body mass index [BMI] 34.0-34.9, adult; E78.5 Hyperlipidemia, unspecified; G47.33 Obstructive sleep apnea (adult) (pediatric); M10.9 Gout, unspecified
CPT/HCPCS: 36415; 71046; 76770; 80048; 80053; 81003; 81015; 83605; 85025; 85027; 85049; 85300; 85362; 85379; 85384; 85610; 85730; 86140; 87040; 87086; 87389; 87633; 96365; 96375; J1100; J1200; J1956; J2930; J3370; J7050; J7506

== ENCOUNTER 2018-12-06 13:30 | Emergency (ER) | payer BC ==
[2018-12-06 13:55] LABS: Bilirubin Negative (Negative); Blood, Urine Trace (Negative); Clarity Slightly Cloudy (Clear); Glucose, Urine (Dipstick) Negative (Negative); Leukocyte Moderate (Negative); Nitrite Negative (Negative); Protein, Urine (Dipstick) 30 mg/dL (Neg-Trace)
[2018-12-06] MEDS ORDERED: Ondansetron PF 4 MG/2 ML Vial ONE (13:57)
[2018-12-06] MEDS ORDERED: Acetaminophen 500 MG TAB ONE (13:57)
[2018-12-06 14:34] LABS: Bacteria/HPF 1+ HPF (None Seen); Hyaline Casts/LPF 0-3 HYALINE CAST LPF (0-3 Hyaline)
[2018-12-06 14:36] LABS: #Basophils 0.1 thou/uL (0.0-0.2); #Eosinphils 0.3 thou/uL (0.0-0.7); #Lymphocytes 0.7 thou/uL (1.20-3.40); #Monocytes 0.5 thou/uL (0.11-0.59); #Neutrophils 8.3 thou/uL (1.40-6.50); %Basophils 0.6 % (0.0-1.0); %Lymphocytes 6.9 % (21.0-51.0); %Monocytes 5.2 % (0.0-10.0); %Neutrophils 84.3 % (42.0-75.0); Hemoglobin 12.7 g/dL (12.0-16.0); Mean Corpuscular HGB CONC 33.6 g/dL (32.0-36.0); Mean Corpuscular Volume 86.1 fL (78.0-98.0); Mean Platelet Volume 7.2 fL (7.4-10.4); Platelet Count 267 thou/uL (130-400); RBC Distribution Width 12.3 % (11.5-14.5); Red Blood Cell (RBC) Count 4.39 mill/uL (4.20-5.40); White Blood Cell (WBC) Count 9.9 thou/uL (4.8-10.8)
[2018-12-06 14:49] LABS: ALT (SGPT) 30 U/L (8-55); AST (SGOT) 31 U/L (5-34); Albumin 4.2 g/dL (3.5-5.0); Alkaline Phosphatase 137 U/L (40-150); Anion Gap 14 mmol/L (10-20); BUN (Urea Nitrogen) 10 mg/dL (7.0-18.7); Bilirubin, Total 0.3 mg/dL (0.2-1.2); Calc. Creatinine Clearance 0 mL/min (70-130); Calcium 9.3 mg/dL (7.8-10.44); Carbon Dioxide 26 mmol/L (22-29); Chloride 104 mmol/L (98-107); Estimated GFR-MDRD Greater than 90; Globulin 4.1 g/dL (2.4-3.5); Glucose 88 mg/dL (70-105); Lipase 30 U/L (8-78); Potassium 3.6 mmol/L (3.5-5.1); Protein, Total 8.3 g/dL (6.0-8.3); Sodium 140 mmol/L (136-145)
[2018-12-06] MEDS ORDERED: Ibuprofen 600 MG TAB ONE (14:56)
== END 2018-12-06 17:14 | disposition home or self-care (01) ==
LOC: SCSER 13:30
DX: B34.9 Viral infection, unspecified (principal); E78.5 Hyperlipidemia, unspecified; I10 Essential (primary) hypertension; J45.909 Unspecified asthma, uncomplicated; Z79.51 Long term (current) use of inhaled steroids; Z79.899 Other long term (current) drug therapy
CPT/HCPCS: 36415; 80053; 81003; 81015; 83605; 83690; 85025; 87040; 87804; 96361; 96374; J2405

== ENCOUNTER 2019-02-24 12:50 | Outpatient (CLI) | payer BC ==
--- NOTE | 2019-02-24 13:52 | MRI ---
Exam: MRI cervical spine without contrast HISTORY: Neck pain, radiating down the left upper extremity with associated numbness and tingling. Sy mptoms x5 hours.. COMPARISON: None FINDINGS: Straightening of normal cervical lordosis is presumed to be positional. No significant STIR hyperint ensity to suggest vertebral body edema or ligamentous injury. Appropriate T1 marrow signal intensity of cervical vertebra. Vertebral body height is maintained. The re is no fracture. Visualized brain parenchyma, cervicomedullary junction, cervical cord and the upper thoracic cord are normal size and signal intensity Intrinsic T1 and T2 hyperintensity at the C7 level, compatible with a small hemangioma C2-C3: No significant central canal stenosis or significant neural foraminal narrowing C3-C4: No significant central canal stenosis. Right neural foramen is patent. Mild to moderate left f oraminal narrowing due to uncovertebral hypertrophy. C4-C5: No significant posterior disc abnormality. Mild right foramina due to uncovertebral and facet hypertrophy. Left neural foramen is patent. C5-C6: Central disc protrusion abuts the thecal sac. No significant mass effect upon the cervical cor d. No significant central canal stenosis. Bilaterally, neural foramina pain. C6-C7: No significant central canal stenosis or significant foraminal narrowing C7-T1: No significant central canal stenosis or significant foraminal narrowing IMPRESSION: Degenerative changes of the cervical spine as above. Transcribed Date/Time: 02/24/2019 2:37 PM
== END 2019-02-24 12:51 | disposition home or self-care (01) ==
LOC: SCSMRI 12:50
PROVIDERS: ATTEND Nurse Practitioner Family
DX: M47.22 Other spondylosis with radiculopathy, cervical region (principal)
CPT/HCPCS: 72141

== ENCOUNTER 2019-08-01 20:06 | Emergency (ER) | payer BC ==
[2019-08-01 21:04] LABS: #Basophils 0.3 thou/uL (0.0-0.2); #Eosinphils 0.1 thou/uL (0.0-0.7); #Monocytes 0.8 thou/uL (0.11-0.59); #Neutrophils 12.1 thou/uL (1.40-6.50); %Basophils 1.4 % (0.0-1.0); %Eosinophils 0.6 % (0.0-10.0); %Lymphocytes 27.4 % (21.0-51.0); %Monocytes 4.4 % (0.0-10.0); %Neutrophils 66.3 % (42.0-75.0); Hemoglobin 13.6 g/dL (12.0-16.0); Mean Corpuscular HGB CONC 32.8 g/dL (32.0-36.0); Mean Corpuscular Hemoglobin 28.7 pg (27.0-31.0); Mean Corpuscular Volume 87.3 fL (78.0-98.0); Mean Platelet Volume 7.9 fL (7.4-10.4); Platelet Count 299 thou/uL (130-400); RBC Distribution Width 12.1 % (11.5-14.5); Red Blood Cell (RBC) Count 4.75 mill/uL (4.20-5.40); White Blood Cell (WBC) Count 18.3 thou/uL (4.8-10.8)
[2019-08-01 21:25] LABS: ALT (SGPT) 23 U/L (8-55); AST (SGOT) 23 U/L (5-34); Albumin 4.6 g/dL (3.5-5.0); Alkaline Phosphatase 152 U/L (40-110); Anion Gap 12 mmol/L (10-20); BUN (Urea Nitrogen) 14 mg/dL (7.0-18.7); Bilirubin, Total 0.4 mg/dL (0.2-1.2); Calc. Creatinine Clearance 0 mL/min (70-130); Calcium 9.8 mg/dL (7.8-10.44); Carbon Dioxide 28 mmol/L (22-29); Chloride 102 mmol/L (98-107); Estimated GFR-MDRD Greater than 90; Globulin 3.7 g/dL (2.4-3.5); Glucose 86 mg/dL (70-105); Lipase 25 U/L (8-78); Potassium 3.7 mmol/L (3.5-5.1); Protein, Total 8.3 g/dL (6.0-8.3); Sodium 138 mmol/L (136-145)
[2019-08-01 22:38] LABS: Bacteria/HPF None Seen HPF (None Seen); Bilirubin Negative (Negative); Blood, Urine Negative (Negative); Clarity Clear (Clear); Glucose, Urine (Dipstick) Normal (Negative); Leukocyte 500 Leu/uL (Negative); Nitrite Negative (Negative); Protein, Urine (Dipstick) Negative (Neg-Trace); Squamous Epithelial 0-3 HPF (0-3); Urobilinogen Normal mg/dL (Less than 2); WBC/HPF 0-3 HPF (0-3)
[2019-08-01] MEDS ORDERED: Ondansetron ODT 4 MG TAB ONE (22:57)
[2019-08-01] MEDS ORDERED: Ketorolac Tromethamine 30 MG/ML VIAL ONE (22:57)
--- NOTE | 2019-08-01 23:30 | CT ---
CT Stone Protocol History: Left-sided flank pain Comparison: None. Findings: Lung bases are clear. No pericardial effusion. Prior cholecystectomy. Abnormal soft tissue nodularity on the anterior margin of the sigmoid colon which abuts the cervix. T here is gas within the vaginal vault. There appears be some scar formation tethering along the ileal mesentery. These findings are unchange d from 2015. No nephroureterolithiasis or hydroureteronephrosis. No secondary evidence of a recently passed stone. Adrenal glands are unremarkable. Pancreas and spleen are unremarkable. No acute osseous abnormality. Prior cholecystectomy. Impression: 1. No nephroureterolithiasis or hydroureteronephrosis. No secondary evidence of a recently passed sto ne. 2. Evidence of scar in the pelvic cul-de-sac as well as a small bowel mesentery may be sequelae of pr ior endometriosis and is unchanged from 2015 CT examination. 3. No acute inflammatory process within the abdomen or pelvis.
== END 2019-08-01 23:53 | disposition home or self-care (01) ==
LOC: ERS 20:06
DX: K63.89 Other specified diseases of intestine (principal); R11.2 Nausea with vomiting, unspecified; E78.5 Hyperlipidemia, unspecified; E78.00 Pure hypercholesterolemia, unspecified; I10 Essential (primary) hypertension; J45.909 Unspecified asthma, uncomplicated; Z79.899 Other long term (current) drug therapy
CPT/HCPCS: 36415; 74176; 80053; 81003; 81015; 83690; 85025; 96361; 96374; J1885; Q0162

== ENCOUNTER 2019-11-09 16:10 | Outpatient (CLI) | payer BC, OTHER ==
[2019-11-10 11:52] LABS: SARS-CoV-2 MS2 Positive; SARS-CoV-2 N Gene Negative; SARS-CoV-2 S Gene Negative; SARS-CoV-2 orf1ab Negative
== END 2019-11-09 16:11 | disposition home or self-care (01) ==
LOC: LABBT 16:10
PROVIDERS: ATTEND Internal Medicine Gastroenterology
DX: Z01.812 Encounter for preprocedural laboratory examination (principal); Z11.59 Encounter for screening for other viral diseases; N80.8 Other endometriosis; K21.9 Gastro-esophageal reflux disease without esophagitis; K59.00 Constipation, unspecified; R10.32 Left lower quadrant pain; R22.9 Localized swelling, mass and lump, unspecified
CPT/HCPCS: 87635; U0003

== ENCOUNTER 2019-11-11 10:41 | Day surgery (SDC) | payer BC ==
[2019-11-09 16:36] VITALS: BMI 35.2
[2019-11-11] MEDS ORDERED: Lidocaine 1% PF 5 ML VIAL ONE (12:30)
[2019-11-11] MEDS ORDERED: PROPOFOL 200 MG/20 ML VIAL ONE (12:30)
--- NOTE | 2019-11-11 21:29 | OP ---
DATE OF PROCEDURE: 11/11/2019 TITLE OF PROCEDURE: EGD with biopsy. PREPROCEDURE DIAGNOSIS: Chronic gastroesophageal reflux disease. POSTPROCEDURE DIAGNOSES: 1. Exam to second portion of duodenum. 2. Grade A distal esophagitis at 36 cm, biopsied. 3. Small hiatal hernia. 4. Mild erosive gastritis, gastric antrum, biopsied. 5. Normal duodenum. 6. No evidence of gastric or duodenal ulcers. PROCEDURE IN DETAIL: Written informed consent was obtained. The patient was brought to the endoscopy suite. Total intravenous anesthesia was administered by Mr. Benji Merida CRNA. The patient was placed in the left lateral decubitus position. A bite block was inserted into the mouth. A Pentax video diagnostic gastroscope was introduced into the oral cavity and the esophagus was easily intubated. The gastroscope was advanced under direct visualization to the second portion of the duodenum. Endoscopic findings revealed a small sliding 1 cm hiatal hernia. Mucosal changes consistent with a mild grade A esophagitis were also noted. Biopsies were obtained for histology. The stomach was entered and carefully examined. This included a retroflexed view of the cardia and fundus. Mild antral gastritis was noted in a striped fashion in the gastric antrum. Mucosal changes included superficial erosions, congested folds, and patchy erythema. Biopsies were obtained for histology. The duodenum from the bulb to the second portion was then examined and appeared grossly normal. There was no evidence of duodenal or gastric ulcers. The stomach was decompressed as the endoscope was completely removed from the patient. She was repositioned for the colonoscopy. RECOMMENDATIONS: 1. Await biopsy results. 2. Ask the patient to call me in one week for biopsy results. 3. Follow up in the GI clinic in three weeks. 4. Resume current medications including pantoprazole 40 mg daily. 5. Proceed with colonoscopy. Job ID: [id number]
--- NOTE | 2019-11-11 21:47 | OP ---
DATE OF PROCEDURE: 11/11/2019 TITLE OF PROCEDURE: Colonoscopy. PREPROCEDURE DIAGNOSES: 1. Intractable left lower quadrant abdominal pain. 2. Chronic constipation. POSTPROCEDURE DIAGNOSES: 1. Exam to cecum; fair bowel preparation. 2. Mildly congested mucosa in the distal sigmoid colon, biopsied. 3. No evidence of polyp, diverticulum, or active colitis. 4. Small internal hemorrhoids. 5. No evidence of active colonic bleeding. 6. Otherwise, normal colonoscopy. PROCEDURE: Written informed consent was obtained. Upon completion of the EGD, the patient was repositioned for the colonoscopy. Total intravenous anesthesia was provided by Sarthak Benji Merida. The patient was placed in the left lateral decubitus position. A digital rectal exam was performed that was unremarkable. A Pentax video colonoscope was inserted through the anal canal and advanced under direct visualization to the cecum. Position in the cecum was verified by clear identification of the appendiceal orifice and the ileocecal valve. The quality of the bowel preparation was fair. A [id number] amount of thick, opaque fecal liquid adhered to many areas of the colonic mucosa, but most of it was rinsed away with copious irrigation and suctioning. Endoscopic findings revealed a grossly normal-appearing colonic mucosa. No diverticulum, polyp, or active colitis was seen. No active colonic bleeding site or vascular ectasia was identified. In the distal sigmoid, at 19 cm from the anal verge, the sigmoid mucosa appeared circumferentially mildly edematous with scattered subepithelial petechiae. This was nonspecific and may be related to the bowel preparation. Biopsies were obtained for histology. In the rectum, retroflexed view demonstrated small internal hemorrhoids that were not actively bleeding. The colonoscope was then withdrawn from the patient and the exam was terminated. There were no immediate complications. RECOMMENDATIONS: 1. Await biopsy results. 2. Ask the patient to call me in 1 week for biopsy results. 3. Repeat colonoscopy for purposes of colon cancer screening in 8 to 10 years. 4. Initiate Linzess 290 mcg p.o. q.a.m. for constipation. 5. Follow up in the clinic in 3 weeks. Job ID: [id number]
== END 2019-11-11 15:35 | disposition home or self-care (01) ==
LOC: SDC 10:41
PROVIDERS: ATTEND Internal Medicine Gastroenterology
PROC: 0DB58ZX Excision of Esophagus, Via Natural or Artificial Opening Endoscopic, Diagnostic (ICD-10-PCS; principal; 2019-11-11)
PROC: 0DJD8ZZ Inspection of Lower Intestinal Tract, Via Natural or Artificial Opening Endoscopic (ICD-10-PCS; principal; 2019-11-11)
PROC: 0DB78ZX Excision of Stomach, Pylorus, Via Natural or Artificial Opening Endoscopic, Diagnostic (ICD-10-PCS; principal; 2019-11-11)
PROC: 0DBN8ZX Excision of Sigmoid Colon, Via Natural or Artificial Opening Endoscopic, Diagnostic (ICD-10-PCS; principal; 2019-11-11)
DX: K59.09 Other constipation (principal); K64.8 Other hemorrhoids; K21.0 Gastro-esophageal reflux disease with esophagitis; K44.9 Diaphragmatic hernia without obstruction or gangrene; K29.70 Gastritis, unspecified, without bleeding; Z79.899 Other long term (current) drug therapy; Z88.0 Allergy status to penicillin; Z88.5 Allergy status to narcotic agent; Z88.6 Allergy status to analgesic agent; Z88.8 Allergy status to other drugs, medicaments and biological substances
CPT/HCPCS: 88305; 88312; 88313; J2001; J2704

== ENCOUNTER 2020-05-02 07:38 | Outpatient (CLI) | payer BC ==
--- NOTE | 2020-05-02 11:01 | MRI ---
MRI LUMBAR SPINE WITHOUT CONTRAST: Date: 05/02/2020 INDICATION: Lumbar pain. Lumbar spondylosis. Comparison made to MRI lumbar spine dated 02/03/2019. FINDINGS: Lumbar vertebra maintain normal height and alignment. Vertebral body signal is normal. Degenerative d isc changes are seen at L3-4, L4-5, and L5-S1, and are unchanged in appearance from the prior study. No significant disc bulge or protrusion seen at T12-L1, L1-2, or L2-3 levels. L3-4: Mild broad based disc bulge is similar to the prior exam. This flattens the anterior thecal sa c. No central canal or foraminal stenosis. L4-5: Annular fissure with broad based disc bulge and small asymmetric protrusion centrally and to t he left which does encroach into the left foramina. This flattens the anterior thecal sac and may dis place the traversing left L5 nerve root. Facet hypertrophy. Mild central canal stenosis. Findings tc ear similar to the 02/03/2019 exam. L5-S1: Annular fissure with a broad based disc protrusion which is more pronounced to the left. There is left foraminal zone extension. There is displacement of the traversing left S1 nerve root. Mild c entral canal stenosis. This L5-S1 protrusion was present on the prior exam, but may be slightly more pronounced to the left today and the displacement of the left traversing S1 nerve root appears more p rominent today. IMPRESSION: Disc protrusion at L4-5 and L5-S1 as described. POS: SHAKEELW
== END 2020-05-02 07:39 | disposition home or self-care (01) ==
LOC: SCSMRI 07:38
PROVIDERS: ATTEND Nurse Practitioner Family
DX: M47.816 Spondylosis without myelopathy or radiculopathy, lumbar region (principal); M51.36 Other intervertebral disc degeneration, lumbar region; M51.26 Other intervertebral disc displacement, lumbar region; M51.27 Other intervertebral disc displacement, lumbosacral region
CPT/HCPCS: 72148

== ENCOUNTER 2020-06-04 16:14 | Outpatient (CLI) | payer BC ==
[2020-06-05 02:17] LABS: SARS-CoV-2 MS2 Positive; SARS-CoV-2 N Gene Negative; SARS-CoV-2 S Gene Negative; SARS-CoV-2 by NAA Not Detected (NotDetected); SARS-CoV-2 orf1ab Negative
== END 2020-06-04 16:15 | disposition home or self-care (01) ==
LOC: LABBT 16:14
PROVIDERS: ATTEND Orthopaedic Surgery
DX: Z01.818 Encounter for other preprocedural examination (principal); Z20.828 Contact with and (suspected) exposure to other viral communicable diseases
CPT/HCPCS: 36415; 85025; 87635; 93005; 93010; U0003

== ENCOUNTER 2020-06-07 10:28 | Day surgery (SDC) | payer BC ==
[2020-06-06 12:35] VITALS: BMI 34.8
[2020-06-07] MEDS ORDERED: Clindamycin/D5W 600 mg/50 ml Premix Bag ONE (10:47)
[2020-06-07] MEDS ORDERED: Lidocaine 1% PF 5 ML VIAL ONE (12:35)
[2020-06-07] MEDS ORDERED: Ondansetron PF 4 MG/2 ML Vial ONE (12:35)
[2020-06-07] MEDS ORDERED: Ketorolac Tromethamine 30 MG/ML VIAL ONE (12:35)
[2020-06-07] MEDS ORDERED: PROPOFOL 200 MG/20 ML VIAL ONE (12:35)
[2020-06-07] MEDS ORDERED: Midazolam HCl 2 mg/2 ml Vial ONE (13:54)
[2020-06-07] MEDS ORDERED: Fentanyl 100 MCG/2 ML VIAL ONE (13:54)
[2020-06-07] MEDS ORDERED: Meperidine HCl/PF 25 MG/ML VIAL ONE (13:57)
[2020-06-07] MEDS ORDERED: Lidocaine 1% w/Epinephrine 1:100K 20 ML VIAL ONE (14:15)
[2020-06-07] MEDS ORDERED: Bupivacaine 0.25% HCL 30 ML VIAL ONE (14:19)
[2020-06-07] MEDS ORDERED: Morphine 4 MG/ML VIAL ONE (15:08)
[2020-06-07] MEDS ORDERED: hydrALAZINE 20 MG/ML VIAL ONE (15:25)
[2020-06-07] MEDS ORDERED: Morphine 2 MG/ML VIAL ONE (15:42)
--- NOTE | 2020-06-07 18:12 | OP ---
DATE OF PROCEDURE: 06/07/2020 PREOPERATIVE DIAGNOSES: 1. Right knee loose body trochlear notch. 2. Grade 3 medial femoral condyle degenerative changes. 3. Question of possible PVNS localized. PROCEDURES PERFORMED: 1. Removal of loose body. 2. Debridement and shaving, medial femoral condyle. 3. Partial synovectomy. CARBONATING STONE CLEANER: None. ANESTHESIOLOGISTS: Stacey Mcgarry MD/Denny Adkins MD ANESTHESIA: The patient received LMA and 25 mL of 0.25% Marcaine plain. TOURNIQUET TIME: 18 minutes. ANTIBIOTICS: 600 clindamycin. ESTIMATED BLOOD LOSS: Less than 30 mL. COMPLICATION: None. HISTORY OF PRESENT ILLNESS: Ms. Greenberg is a 45-year-old female, who presents with a right greater than left knee pain. The pain is 7/10. The patient has taken oral steroids, continued to have pain. No injury or fall. Had MRI evidence of her right knee of having some medial femoral condyle changes and what appeared to be nodular synovitis. The patient had loose bodies, those floating in the knee. I discussed the risks and benefit of debridement, shaving her synovitis, removal of loose body, evaluation of medial femoral condyle after debridement and shaving. She understood the risks and benefits of the procedure, pain, scar, bleeding, infection, damage to vital structures, decreased range of motion and strength, arthritis, risk of blood clots, damage to vital structures, and loss of life or limb. The patient understood these risks and benefits and elected to proceed. DESCRIPTION OF PROCEDURE: Time-out was performed designating the patient's right lower extremity as the operative site based on site, consent, and marking. After time-out, the patient's right lower extremity was prepped and draped in a sterile fashion. Tourniquet was brought up for a total of 18 minutes. An anterolateral portal site was performed using a spinal needle to visualize the anteromedial placement. I debrided off the fat pad, exposed the ACL. Within the notch, there was a loose body that was about 1.2 x 1 cm, that was likely the one noted on the MRI report that was removed and sent off for pathology. It could be a localized PVNS, but likely just cartilage loose body adhered to itself, cartilage cap adhered to itself. I looked to the ACL and the PCL, which were intact with the lateral meniscus showed a good placement. No signs of tearing. No significant full-thickness defect noted medially. There was no obvious tearing. No extrusion of the joint at the medial meniscus. There was grade 3 changes in medial femoral condyle in a stellate direction. I debrided the medial femoral condyle of any unstable segments, then moved patellofemoral, where there was no full-thickness defects. I moved in the pouch. In the pouch, there was synovium noted throughout. Normal articular fat. I did not see except for a one little 4 mm red spot on the vastus medialis. I oblique the wrist under the vastus medialis, which I debrided off the synovium to the tendon. I did not see any other really significantly inflamed signs of localized pigmented villonodular synovitis. I removed the loose body and sent for pathology. After this, I completed my diagnostic scope, washed and closed with 3-0 nylon, injected 25 mL of Marcaine 0.25% plain intra-articular. The patient can passively fold up and flex potentially just secondary to arthritic changes in her medial femoral condyle, likely early degenerative changes. The patient will be discharged home weightbearing as tolerated. She will follow me up in 2 weeks for suture removal. Job ID: [id number]
== END 2020-06-07 17:54 | disposition home or self-care (01) ==
LOC: SDC 10:28
PROVIDERS: ATTEND Orthopaedic Surgery
DX: D48.1 Neoplasm of uncertain behavior of connective and other soft tissue (principal); M23.41 Loose body in knee, right knee; M17.11 Unilateral primary osteoarthritis, right knee; I10 Essential (primary) hypertension; J45.909 Unspecified asthma, uncomplicated; M41.9 Scoliosis, unspecified; G47.30 Sleep apnea, unspecified; Z79.899 Other long term (current) drug therapy; Z88.0 Allergy status to penicillin; Z88.5 Allergy status to narcotic agent; Z88.8 Allergy status to other drugs, medicaments and biological substances
CPT/HCPCS: 88307; J0360; J1885; J2175; J2250; J2270; J2405; J2704; J3010; J3490; S0020

== ENCOUNTER 2021-06-24 07:31 | Outpatient (CLI) | payer BC | END 2021-06-24 07:32 | disposition home or self-care (01) | LOC: SCSMRI 07:31 | PROVIDERS: ATTEND Surgery | DX: M51.16 Intervertebral disc disorders with radiculopathy, lumbar region (principal) | CPT/HCPCS: 72148 ==

== ENCOUNTER 2021-07-01 10:06 | Outpatient (CLI) | payer BC | END 2021-07-01 10:07 | disposition home or self-care (01) | LOC: SCSRAD 10:06 | PROVIDERS: ATTEND Surgery | DX: M51.16 Intervertebral disc disorders with radiculopathy, lumbar region (principal) | CPT/HCPCS: 72110 ==

== ENCOUNTER 2022-02-22 08:26 | Emergency (ER) | payer BC ==
[2022-02-22] MEDS ORDERED: Acetaminophen 325 MG TAB ONE (10:24)
[2022-02-22 13:22] LABS: #Basophils 0.1 thou/uL (0.0-0.2); #Eosinphils 0.2 thou/uL (0.0-0.7); #Lymphocytes 4.1 thou/uL (1.20-3.40); #Monocytes 0.5 thou/uL (0.11-0.59); #Neutrophils 7.1 thou/uL (1.40-6.50); %Basophils 0.7 % (0.0-1.0); %Eosinophils 1.5 % (0.0-10.0); %Monocytes 3.8 % (0.0-10.0); Hemoglobin 12.9 g/dL (12.0-16.0); Mean Corpuscular Hemoglobin 30.2 pg (27.0-31.0); Mean Corpuscular Volume 88.6 fL (78.0-98.0); Mean Platelet Volume 7.3 fL (7.4-10.4); Platelet Count 294 thou/uL (130-400); RBC Distribution Width 12.3 % (11.5-14.5); Red Blood Cell (RBC) Count 4.26 mill/uL (4.20-5.40); White Blood Cell (WBC) Count 11.9 thou/uL (4.8-10.8)
[2022-02-22 13:45] LABS: ALT (SGPT) 24 U/L (8-55); AST (SGOT) 31 U/L (5-34); Alkaline Phosphatase 135 U/L (40-110); Anion Gap 14 mmol/L (10-20); BUN (Urea Nitrogen) 11 mg/dL (7.0-18.7); Bilirubin, Total 0.4 mg/dL (0.2-1.2); Calc. Creatinine Clearance 0 mL/min (70-130); Calcium 9.1 mg/dL (7.8-10.44); Carbon Dioxide 24 mmol/L (22-29); Chloride 105 mmol/L (98-107); Estimated GFR 107; Globulin 3.3 g/dL (2.4-3.5); Glucose 80 mg/dL (70-105); Potassium 3.4 mmol/L (3.5-5.1); Protein, Total 7.3 g/dL (6.0-8.3); Sodium 140 mmol/L (136-145)
== END 2022-02-22 14:49 | disposition home or self-care (01) ==
LOC: ERS 08:26
DX: M79.89 Other specified soft tissue disorders (principal); M25.562 Pain in left knee; I10 Essential (primary) hypertension; E78.5 Hyperlipidemia, unspecified; Z79.899 Other long term (current) drug therapy
CPT/HCPCS: 80053; 83880; 85025; 85379